=== PATIENT | female | born 1945 | race Caucasian/White ===

== ENCOUNTER → 2016-07-08 | Outpatient (CLI) | payer MEDICARE, OTHER ==
--- NOTE | 2016-07-08 10:38 | REPMRS ---
Patient History The patient states she had a clinical breast exam in 07/2016. Patient is postmenopausal. Family history of breast cancer in maternal aunt at age 50 or over and ovarian cancer in maternal cousin at age 59. Digital Woman Screen Mammo: July 08, 2016 - Exam #: [id number] Bilateral CC and MLO view(s) were taken. Technologist: Louise Tapia, Technologist Prior study comparison: June 21, 2015, digital woman screen mammo performed at [facility]. June 13, 2014, digital woman screen mammo performed at [facility]. June 08, 2013, digital woman screen mammo performed at [facility]. FINDINGS: There are scattered fibroglandular densities. There has been no change in the appearance of the mammogram from the prior studies. There is a mild amount of scattered fibroglandular density which is fairly symmetric. There is no interval development of dominant mass, architectural distortion, or clustered microcalcification suggestive of malignancy. ASSESSMENT: BI-RADS/ACR category 1 mammogram. Negative. Recommendation Routine screening mammogram in 1 year (for women over age 40). This mammogram was interpreted with the aid of an FDA-approved computer-aided dectection system. Electronically Signed By: Eliazar Hopkins MD 07/08/16 1038
== END ==
LOC: M WHC 09:10
PROVIDERS: ATTEND Nurse Practitioner Family
DX: Z01.419 Encounter for gynecological examination (general) (routine) without abnormal findings (principal); Z12.31 Encounter for screening mammogram for malignant neoplasm of breast; Z78.0 Asymptomatic menopausal state; Z12.12 Encounter for screening for malignant neoplasm of rectum
CPT/HCPCS: 82270; G0101; G0202

== ENCOUNTER → 2016-10-27 | Outpatient (CLI) | payer MEDICARE, OTHER ==
[2016-10-27 12:40] LABS: MEAN CORPUSCULAR HGB CONC 33.1 g/dl (32.0-36.5); MEAN CORPUSCULAR VOLUME 93.7 fl (80.0-96.0); RED CELL DISTRIBUTION WIDTH 13.2 % (11.5-14.5); WHITE BLOOD COUNT 7.9 K/mm3 (4.0-10.0)
[2016-10-27 13:14] LABS: ALBUMIN 3.8 GM/DL (3.2-5.2); ALBUMIN/GLOBULIN RATIO 1.23 (1.00-1.93); ALKALINE PHOSPHATASE 93 U/L (45-117); ALT/SGPT 28 U/L (12-78); ANION GAP 7 MEQ/L (8-16); AST/SGOT 8 U/L (15-37); BILIRUBIN,TOTAL 0.6 MG/DL (0.2-1.0); BLOOD UREA NITROGEN 19 MG/DL (7-18); CALCIUM LEVEL 9.4 MG/DL (8.8-10.2); CARBON DIOXIDE LEVEL 30 MEQ/L (21-32); CHLORIDE LEVEL 105 MEQ/L (98-107); CHOLESTEROL LEVEL 207 MG/DL (<200); CREATININE FOR GFR 0.81 MG/DL (0.55-1.02); GLOMERULAR FILTRATION RATE > 60.0 (>39); GLUCOSE, FASTING 84 MG/DL (83-110); SODIUM LEVEL 142 MEQ/L (136-145); TOTAL PROTEIN 6.9 GM/DL (6.4-8.2); TRIGLYCERIDES LEVEL 78 MG/DL (<150)
== END ==
LOC: M WUC 08:56
PROVIDERS: ATTEND Nurse Practitioner Adult Health
DX: Z00.00 Encounter for general adult medical examination without abnormal findings (principal); E55.9 Vitamin D deficiency, unspecified; Z79.899 Other long term (current) drug therapy

== ENCOUNTER → 2017-03-03 | Outpatient (CLI) | payer MEDICARE, OTHER ==
--- NOTE | 2017-03-03 12:33 | REP ---
BILATERAL LOWER EXTREMITY DUPLEX VENOUS ULTRASOUND: Reflux evaluation. HISTORY: Bilateral lower extremity venous insufficiency. Question reflux. Pain in the left leg. FINDINGS: The deep veins are anechoic and fully compressible on two-dimensional scanning in both lower extremities from the groin to the popliteal fossa. Color flow imaging is homogeneous. Spectral Doppler interrogation shows intact respiratory variation in flow and normal manual augmentation of flow. There is no evidence of deep vein thrombosis on either side. REFLUX EVALUATION: On the right, reflux is seen greater than 0.5 seconds in duration in the proximal common femoral vein as well as in the anterior accessory greater saphenous vein. In the greater saphenous vein proximally reflux of 2.5 seconds in duration is observed. No more distal reflux is seen in the right lower extremity. The greater saphenous vein measures 6.5 mm in AP dimension proximally, 2.7 mm at midthigh, and 1.6 mm in AP dimension distally. The lesser saphenous vein measures 3.3 mm in AP dimension. There is a mid thigh collateral veins seen. On the left, a large midthigh collateral vein is seen. Reflux is seen within this. Reflux is seen in the common femoral vein as well. Greater than 0.5 seconds in duration. 2.5 seconds of valvular reflux is seen in the proximal greater saphenous vein at the saphenofemoral junction where the greater saphenous vein measures 6.7 mm in AP dimension. 2.9 seconds duration reflux is observed in the greater saphenous vein at mid thigh where the vein measures 5.1 mm. No more distal reflux is seen. The greater saphenous vein measures 1.8 mm at the knee. The lesser saphenous vein measures 5.3 mm. IMPRESSION: There is reflux in the proximal thigh veins bilaterally as above. No evidence of DVT. Signed by Brian Hopkins MD 03/03/2017 01:09 P
== END ==
LOC: M RAD 09:38
PROVIDERS: ATTEND Surgery Vascular Surgery
DX: M79.605 Pain in left leg (principal)

== ENCOUNTER → 2017-07-29 | Outpatient (CLI) | payer MEDICARE, OTHER | LOC: M RAD 09:14 | DX: Z12.31 Encounter for screening mammogram for malignant neoplasm of breast (principal) | CPT/HCPCS: 77065 ==

== ENCOUNTER → 2017-08-17 | Outpatient (CLI) | payer MEDICARE, OTHER ==
[2017-08-17 14:13] LABS: ANION GAP 4 MEQ/L (8-16); BLOOD UREA NITROGEN 21 MG/DL (7-18); CALCIUM LEVEL 9.2 MG/DL (8.8-10.2); CARBON DIOXIDE LEVEL 30 MEQ/L (21-32); CHLORIDE LEVEL 106 MEQ/L (98-107); GLOMERULAR FILTRATION RATE > 60.0 (>39); GLUCOSE, FASTING 82 MG/DL (70-100); POTASSIUM SERUM 4.1 MEQ/L (3.5-5.1); SODIUM LEVEL 140 MEQ/L (136-145)
== END ==
LOC: M WUC 12:44
DX: C50.919 Malignant neoplasm of unspecified site of unspecified female breast (principal)
CPT/HCPCS: 80048

== ENCOUNTER → 2017-11-16 | Outpatient (CLI) | payer MEDICARE, OTHER ==
[2017-11-16 12:16] LABS: HEMATOCRIT 36.9 % (36.0-47.0); HEMOGLOBIN 12.6 g/dl (12.0-15.5); MEAN CORPUSCULAR HGB CONC 34.1 g/dl (32.0-36.5); MEAN CORPUSCULAR VOLUME 87.9 fl (80.0-96.0); PLATELET COUNT, AUTOMATED 285 10^3/uL (150-450); RED CELL DISTRIBUTION WIDTH 13.3 % (11.5-14.5); WHITE BLOOD COUNT 5.9 10^3/uL (4.0-10.0)
[2017-11-16 12:56] LABS: ALBUMIN 3.3 GM/DL (3.2-5.2); ALBUMIN/GLOBULIN RATIO 1.22 (1.00-1.93); ALKALINE PHOSPHATASE 79 U/L (45-117); ALT/SGPT 38 U/L (12-78); ANION GAP 7 MEQ/L (8-16); AST/SGOT 16 U/L (7-37); BILIRUBIN,TOTAL 0.7 MG/DL (0.2-1.0); BLOOD UREA NITROGEN 18 MG/DL (7-18); CALCIUM LEVEL 8.8 MG/DL (8.8-10.2); CARBON DIOXIDE LEVEL 30 MEQ/L (21-32); CHLORIDE LEVEL 105 MEQ/L (98-107); CHOLESTEROL LEVEL 130 MG/DL (<200); CREATININE FOR GFR 0.72 MG/DL (0.55-1.30); GLOMERULAR FILTRATION RATE > 60.0 (>39); GLUCOSE, FASTING 90 MG/DL (70-100); HDL CHOLESTEROL 57 MG/DL (>40); LDL CHOLESTEROL 56.6 MG/DL (<100); NON-HDL-C 73 MG/DL; POTASSIUM SERUM 3.5 MEQ/L (3.5-5.1); SODIUM LEVEL 142 MEQ/L (136-145); TRIGLYCERIDES LEVEL 82 MG/DL (<150)
[2017-11-16 16:48] LABS: TOTAL 25(OH) VITAMIN D 42.1 NG/ML (30.0-100.0)
== END ==
LOC: M WUC 09:35
DX: Z00.00 Encounter for general adult medical examination without abnormal findings (principal); I87.9 Disorder of vein, unspecified; E78.2 Mixed hyperlipidemia; E55.9 Vitamin D deficiency, unspecified; C50.412 Malignant neoplasm of upper-outer quadrant of left female breast
CPT/HCPCS: 84443

== ENCOUNTER → 2017-11-16 | Outpatient (CLI) | payer MEDICARE, OTHER ==
[2017-11-16 12:15] LABS: BASO % 0.3 % (0.0-1.0); EOS # 0.1 10^3/uL (0.0-0.50); HEMATOCRIT 36.3 % (36.0-47.0); HEMOGLOBIN 12.5 g/dl (12.0-15.5); IMMATURE GRANULOCYTE % 0.7 % (0-3.0); LYMPH # 1.5 10^3/uL (1.5-4.5); MEAN CORPUSCULAR HEMOGLOBIN 30.3 pg (27.0-33.0); MEAN CORPUSCULAR HGB CONC 34.4 g/dl (32.0-36.5); MEAN CORPUSCULAR VOLUME 88.1 fl (80.0-96.0); MONO # 0.2 10^3/uL (0.0-0.8); MONO % 3.1 % (0.0-5.0); NEUTROPHILS % 68.9 % (36.0-66.0); PLATELET COUNT, AUTOMATED 295 10^3/uL (150-450); RED BLOOD COUNT 4.12 10^6/uL (4.00-5.40); RED CELL DISTRIBUTION WIDTH 13.5 % (11.5-14.5); WHITE BLOOD COUNT 5.8 10^3/uL (4.0-10.0)
[2017-11-16 13:03] LABS: ALBUMIN 3.3 GM/DL (3.2-5.2); ALBUMIN/GLOBULIN RATIO 1.27 (1.00-1.93); ALKALINE PHOSPHATASE 77 U/L (45-117); ALT/SGPT 39 U/L (12-78); ANION GAP 7 MEQ/L (8-16); AST/SGOT 15 U/L (7-37); BILIRUBIN,TOTAL 0.7 MG/DL (0.2-1.0); BLOOD UREA NITROGEN 19 MG/DL (7-18); CALCIUM LEVEL 8.6 MG/DL (8.8-10.2); CARBON DIOXIDE LEVEL 30 MEQ/L (21-32); CHLORIDE LEVEL 105 MEQ/L (98-107); CREATININE FOR GFR 0.66 MG/DL (0.55-1.30); GLOMERULAR FILTRATION RATE > 60.0 (>39); GLUCOSE, FASTING 91 MG/DL (70-100); POTASSIUM SERUM 3.5 MEQ/L (3.5-5.1); SODIUM LEVEL 142 MEQ/L (136-145); TOTAL PROTEIN 5.9 GM/DL (6.4-8.2)
== END ==
LOC: M WUC 09:31
DX: C50.412 Malignant neoplasm of upper-outer quadrant of left female breast (principal)

== ENCOUNTER → 2017-12-17 | Outpatient (CLI) | payer MEDICARE, OTHER | LOC: M ONCR 10:04 | DX: D05.02 Lobular carcinoma in situ of left breast (principal) | CPT/HCPCS: G0463 ==

== ENCOUNTER → 2018-02-02 | Outpatient (RCR) | payer MEDICARE, OTHER ==
--- NOTE | 2018-01-14 10:58 | RADONC ---
RADIATION ONCOLOGY SIMULATION NOTE: DATE: 01/13/2018 CHART NUMBER: [id number] Ms. Stover was taken to the CT scan for CT simulation of her left breast and axillary lymph node drainage site. CT scan was accomplished without difficulty or discomfort. Radiation treatment planning is underway and radiation treatments will begin subsequently. An immobilization device was created and will be used throughout the course of treatment. I was physically present throughout the course of CT simulation.
--- NOTE | 2018-01-25 10:08 | RADONC ---
RADIATION ONCOLOGY PROGRESS NOTE DATE: 01/24/2018 CHART #: [id number] Ms. Stover is presently at a dose of 540 cGy to her left breast and is tolerating treatments quite well at this point with no complaints related to her radiation therapy. She is having no breast or bone pain. REVIEW OF SYSTEMS: The patient's review of systems is noncontributory. Denies nausea, vomiting, fevers, chills, night sweats, diplopia, headaches, anxiety or depression, anorexia, weight loss, visual disturbances, chest pain, urinary or bowel difficulties, bone pain, or neurological problems. PHYSICAL EXAMINATION: The patient's skin is in good condition with no evidence of radiation change present. There is no moist or dry desquamation. The remainder of her physical exam remains unchanged. Ms. Stover is tolerating treatments quite well and radiation will continue as scheduled.
== END ==
LOC: M ONCR 01-13 13:29
PROVIDERS: ATTEND Radiology Radiation Oncology
DX: C50.412 Malignant neoplasm of upper-outer quadrant of left female breast (principal)

== ENCOUNTER 2018-02-03 10:40 | Outpatient (RCR) | payer MEDICARE, OTHER | END 2018-03-04 | LOC: M ONCR 02-04 10:47 | DX: C50.412 Malignant neoplasm of upper-outer quadrant of left female breast (principal) | CPT/HCPCS: 77336 ==

== ENCOUNTER 2018-03-09 17:27 | Outpatient (CLI) | payer MEDICARE, OTHER ==
[2018-03-09] MEDS ORDERED: ISOVUE-370 76% 100ML VIAL (Q9967) As Ordered (17:36)
[2018-03-10] MEDS ORDERED: EMLA CREAM 5GM (LIDOCAINE/PRILOCAINE) As Ordered (13:19)
== END 2018-03-10 ==
LOC: M RAD 17:27
DX: R06.02 Shortness of breath (principal); R79.89 Other specified abnormal findings of blood chemistry; J90 Pleural effusion, not elsewhere classified; I31.3 Pericardial effusion (noninflammatory); K44.9 Diaphragmatic hernia without obstruction or gangrene; J98.11 Atelectasis
CPT/HCPCS: 71275

== ENCOUNTER 2018-03-17 10:43 | Outpatient (RCR) | payer MEDICARE, OTHER ==
--- NOTE | 2018-03-10 07:49 | RADONC ---
RADIATION ONCOLOGY SIMULATION NOTE DATE: 03/07/2018 CHART NUMBER: Ms. Stover was taken to the linear accelerator today for clinical setup of her left breast electron beam boost field. Setup was accomplished without difficulty or discomfort. Radiation treatment planning is underway and radiation treatments will begin subsequently. An immobilization device was created and will be used throughout the course of treatment. It was created without difficulty or discomfort. I was physically present throughout the course of CT simulation.
--- NOTE | 2018-03-10 07:50 | RADONC ---
RADIATION ONCOLOGY PROGRESS NOTE DATE: 03/07/2018 CHART #: [id number] Ms. Stover is presently at a dose of 4500 cGy to her left breast and is tolerating treatments quite well at this point with no significant complaints related to her radiation therapy. She is having no significant breast or bone pain. REVIEW OF SYSTEMS: The patient's review of systems is noncontributory. Denies nausea, vomiting, fevers, chills, night sweats, diplopia, headaches, anxiety or depression, anorexia, weight loss, visual disturbances, chest pain, urinary or bowel difficulties, bone pain, or neurological problems. PHYSICAL EXAMINATION: The patient's skin overall is in good condition with no evidence of moist or dry desquamation. She does have brisk erythema and tanning present, especially in the inframammary region. The remainder of her physical exam remains unchanged. Ms. Stover is tolerating treatments quite well and radiation will continue as scheduled.
--- NOTE | 2018-03-15 11:43 | RADONC ---
RADIATION ONCOLOGY PROGRESS NOTE DATE: 03/14/2018 CHART NUMBER: [id number] PROGRESS NOTE: Ms. Stover is presently at a dose of 5460 cGy to her left breast primary site boost and is tolerating treatments quite well at this point with no complaints related to her radiation therapy. She is having no significant breast or bone pain. REVIEW OF SYSTEMS: The patient's review of systems is positive for continued cough but is otherwise noncontributory. Denies nausea, vomiting, fevers, chills, night sweats, diplopia, headaches, anxiety or depression, anorexia, weight loss, visual disturbances, chest pain, urinary or bowel difficulties, bone pain, or neurological problems. She denies standard review of systems. PHYSICAL EXAMINATION: The patient's skin overall is in generally good condition. The remainder of physical exam remains unchanged. The patient's cough is being worked up by her other physicians. In the meantime, radiation is continuing as scheduled.
--- NOTE | 2018-03-18 14:59 | RADONC ---
RADIATION ONCOLOGY TREATMENT SUMMARY DATE: 03/17/2018 CHART NUMBER: [id number] DIAGNOSIS Left breast cancer. STAGE: Stage I B, [id number], grade 3, ER positive, [place] positive, HER2/danika positive (equivocal). ECOG PERFORMANCE STATUS: 0. TREATMENT SUMMARY: Ms. 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 We treated the patient to the left breast for a total dose of 4860 cGy delivered in 27 fractions of 180 cGy each over 48 elapsed days from 01/20/2018 through 03/09/2018. The patient's left breast was treated on the linear accelerator utilizing a 6 MV photon beam via IMRT / IGRT. We also treated the patient to the axilla and cervical lymph node drainage sites included in the IMRT field. Following completion of 4860 cGy, the entire breast and lymph node drainage sites, the primary site was boosted for an additional 1200 cGy delivered in six fractions of 200 cGy each from 03/10/2018 through 03/17/2018. The primary site boost was treated on a linear accelerator utilizing a 16 MEV electron beam prescribed to the 90% isodose line via non phos technique. This brought the primary site to a total dose of 6060 cGy delivered in 33 fractions over 56 elapsed days from 01/20/2018 through 03/17/2018. The patient overall tolerated her treatments quite well with no difficulties related to her radiation therapy. She did have pneumonia and was treated with antibiotics. This did cause a short break in her treatment. She was able to resume treatments, however, without difficulty. I have scheduled the patient to see me again in 1 month for further followup. She will also continue to be followed by her other physicians as well. cc: MD Felisa Conley MD Bonnie Servage, RN
== END 2018-04-04 ==
LOC: M ONCR 10:43
PROVIDERS: ATTEND Radiology Radiation Oncology
DX: C50.412 Malignant neoplasm of upper-outer quadrant of left female breast (principal)

== ENCOUNTER → 2018-04-20 | Outpatient (CLI) | payer MEDICARE, OTHER ==
--- NOTE | 2018-04-21 11:15 | RADONC ---
RADIATION ONCOLOGY FOLLOWUP NOTE DATE: 04/20/2018 CHART #: [id number] DIAGNOSIS: Left breast cancer. STAGE: I B, [id number], grade 3, ER positive, SC positive, HER2/danika positive (equivocal). ECOG PERFORMANCE STATUS: 0. FOLLOWUP NOTE: Ms. Stover is a very pleasant 72-year-old white female with the diagnosis of a stage I B, [id number], poorly differentiated invasive lobular carcinoma of the left breast who is presenting to us today for routine followup visit 1 month post completion of external beam radiation therapy. The patient presents today reporting that she is doing quite well with no complaints at this time related to her radiation therapy disease. She has no breast or bone pain. REVIEW OF SYSTEMS: The patient's review of systems is noncontributory. Denies nausea, vomiting, fevers, chills, night sweats, diplopia, headaches, anxiety or depression, anorexia, weight loss, visual disturbances, chest pain, urinary or bowel difficulties, bone pain, or neurological problems. PHYSICAL EXAMINATION: The patient is a well-developed, well-nourished, 72-year-old female in no acute distress. HEENT exam is normocephalic, atraumatic. Extraocular movements are intact. There is no palpable cervical, supraclavicular, infraclavicular, axillary, or inguinal lymphadenopathy present. Lungs are clear to auscultation and percussion. Heart has a regular rate and rhythm. Abdomen is benign with no hepatosplenomegaly, masses, or tenderness. Breast examination reveals no masses or discharge bilaterally. Skeletal examination reveals no tenderness to pressure or percussion of the bony skeleton. Extremities reveal no clubbing, cyanosis, or edema. Neurologic exam is grossly intact, as is the remainder of the physical examination. ASSESSMENT: The patient is clinically PEGGY at this time and will be seen by us again in 6 months for further followup. She will also continue be followed by her other physicians as well. cc: MD Felisa Conley MD Bonnie Servage, RN
== END ==
LOC: M ONCR 10:55
PROVIDERS: ATTEND Radiology Radiation Oncology
DX: C50.412 Malignant neoplasm of upper-outer quadrant of left female breast (principal)

== ENCOUNTER → 2018-06-13 | Outpatient (REF) | payer MEDICARE, OTHER ==
[2018-06-13 10:53] LABS: HEMATOCRIT 38.9 % (36.0-47.0); HEMOGLOBIN 12.9 g/dl (12.0-15.5); MEAN CORPUSCULAR HEMOGLOBIN 29.5 pg (27.0-33.0); MEAN CORPUSCULAR HGB CONC 33.2 g/dl (32.0-36.5); PLATELET COUNT, AUTOMATED 213 10^3/uL (150-450); RED BLOOD COUNT 4.37 10^6/uL (4.00-5.40); WHITE BLOOD COUNT 4.7 10^3/uL (4.0-10.0)
[2018-06-13 11:19] LABS: BLOOD UREA NITROGEN 20 MG/DL (7-18); CALCIUM LEVEL 8.9 MG/DL (8.8-10.2); CARBON DIOXIDE LEVEL 31 MEQ/L (21-32); CHLORIDE LEVEL 104 MEQ/L (98-107); CREATININE FOR GFR 0.72 MG/DL (0.55-1.30); GLOMERULAR FILTRATION RATE > 60.0 (>39); GLUCOSE, FASTING 93 MG/DL (70-100); SODIUM LEVEL 142 MEQ/L (136-145)
== END ==
LOC: M SFHCPLAZ 08:40
PROVIDERS: ATTEND Internal Medicine
DX: Z01.818 Encounter for other preprocedural examination (principal); I87.322 Chronic venous hypertension (idiopathic) with inflammation of left lower extremity; Z85.3 Personal history of malignant neoplasm of breast
CPT/HCPCS: 36415; 80048; 85027; G0463

== ENCOUNTER → 2018-07-12 | Outpatient (REF) | payer MEDICARE, OTHER ==
[2018-07-12 16:16] LABS: BLOOD UREA NITROGEN 21 MG/DL (7-18); CALCIUM LEVEL 9.2 MG/DL (8.8-10.2); CARBON DIOXIDE LEVEL 26 MEQ/L (21-32); CHLORIDE LEVEL 109 MEQ/L (98-107); CREATININE FOR GFR 0.75 MG/DL (0.55-1.30); GLOMERULAR FILTRATION RATE > 60.0 (>39); GLUCOSE, FASTING 69 MG/DL (70-100); POTASSIUM SERUM 3.9 MEQ/L (3.5-5.1); SODIUM LEVEL 142 MEQ/L (136-145)
== END ==
LOC: M SFHCPLAZ 14:27
PROVIDERS: ATTEND Nurse Practitioner Adult Health
DX: I87.9 Disorder of vein, unspecified (principal)
CPT/HCPCS: 36415; 80048; G0463

== ENCOUNTER → 2018-07-18 | Outpatient (CLI) | payer MEDICARE, OTHER ==
--- NOTE | 2018-07-19 11:12 | DEXA ---
AP SPINE L1 - L4 0.854 -2.8 -1.1 LT FEMUR TOTAL 0.820 -1.5 0.1 LT NECK 0.711 -2.3 -0.6 RT FEMUR TOTAL 0.847 -1.3 0.3 RT NECK 0.735 -2.2 -0.4 TOTAL BODY TOTAL OTHER COMMENTS: Normal bone densitometry of the spine. There is low bone density of the hips. The density of the spine has increased 4.1% since the initial exam on 01/18/2002. The spine density has decreased 1.2% since the most recent exam on 06/13/2014. The density of the left hip has decreased 1.6% since the initial exam on 01/18/2002. The density of the left hip has decreased 2.6% since the most recent exam on 06/13/2014. The density of the right hip has decreased 2.4% since the initial exam on 01/18/2002. The density of the right hip has decreased 4.0% since the most recent exam on 06/13/2014. FOLLOW-UP: Recommendation for the next bone density exam: 2 years. BRANDON
== END ==
LOC: M WHC 11:09
PROVIDERS: ATTEND Nurse Practitioner Family
DX: C50.412 Malignant neoplasm of upper-outer quadrant of left female breast (principal); M85.9 Disorder of bone density and structure, unspecified; Z78.0 Asymptomatic menopausal state; Z12.4 Encounter for screening for malignant neoplasm of cervix; Z12.12 Encounter for screening for malignant neoplasm of rectum
CPT/HCPCS: 77080; 82270; G0101; G0123

== ENCOUNTER → 2018-07-18 | Outpatient (REF) | payer MEDICARE, OTHER | LOC: M SFHCWAGY 11:59 | PROVIDERS: ATTEND Nurse Practitioner Family | DX: Z12.4 Encounter for screening for malignant neoplasm of cervix (principal) ==

== ENCOUNTER → 2018-09-29 | Outpatient (CLI) | payer MEDICARE, OTHER ==
--- NOTE | 2018-09-29 17:53 | REP ---
Clinical: Superficial thrombophlebitis with pain . Technique: Hernandez scale and color Doppler evaluation using linear high frequency transducer. Findings: Ultrasound examination of the left lower extremity deep venous structures from the common femoral vein to the popliteal vein demonstrates normal compressibility flow and wave patterns in response to respiration and augmentation. There is no evidence for deep venous thrombosis. Greater saphenous vein is occluded and consistent with history of prior ablation. Impression: No evidence for deep venous thrombosis. Electronically Signed by Seven Dawkins MD 09/29/2018 05:45 P
== END ==
LOC: M RAD 16:43
PROVIDERS: ATTEND Family Medicine
DX: I80.9 Phlebitis and thrombophlebitis of unspecified site (principal); R60.0 Localized edema
CPT/HCPCS: 93971; G0463

== ENCOUNTER → 2018-10-05 | Outpatient (CLI) | payer MEDICARE, OTHER ==
--- NOTE | 2018-10-07 09:25 | RADONC ---
RADIATION ONCOLOGY FOLLOWUP NOTE DATE: 10/05/2018 CHART NUMBER: [id number] DIAGNOSIS: Left breast cancer. STAGE: Stage I B, [id number], grade 3, ER positive, [place] positive, HER2/danika positive (equivocal). ECOG PERFORMANCE STATUS: 0. FOLLOWUP NOTE: Mrs. Stover, a 72-year-old woman, with a diagnosis of a stage I B, [id number], poorly differentiated invasive lobular carcinoma involving the left breast presents today for followup visit after having completed adjuvant radiotherapy on 03/17/2018. She tolerated her radiotherapy reasonably well and returns today for followup visit with no complaints referable to her disease or to her treatments. REVIEW OF SYSTEMS: She specifically denies any nausea, vomiting, coughing, sputum production or hemoptysis. She also denies pain in the chest / breast area, anxiety, depression, anorexia, weight loss, visual disturbances, urinary or bowel problems, bone pain or neurologic deficits. PHYSICAL EXAMINATION: Reveals a well-developed, well-nourished 72-year-old female in no acute distress. HEENT: Normocephalic. EOMs intact. PERRLA. Fundi benign. Lungs: Clear to auscultation and percussion. Heart: Regular without murmurs. Abdomen: Without evidence of hepatomegaly, masses, deep abdominal tenderness. Extremities: Without cyanosis, clubbing or edema. Neurologic: Examination grossly physiologic and nonfocal. ASSESSMENT The patient is clinically PEGGY at this time, and we would like to see her again in approximately 6 months. She was encouraged to be followed by her routine physicians as per their instructions. cc: MD Felisa Conley MD Bonnie Servage, RN
== END ==
LOC: M ONCR 11:01
PROVIDERS: ATTEND Radiology Radiation Oncology
DX: Z85.3 Personal history of malignant neoplasm of breast (principal); Z92.3 Personal history of irradiation

== ENCOUNTER → 2018-10-12 | Outpatient (REF) | payer MEDICARE, OTHER ==
[2018-10-12 13:48] LABS: ALBUMIN 3.6 GM/DL (3.2-5.2); ALT/SGPT 35 U/L (12-78); BILIRUBIN,TOTAL 0.4 MG/DL (0.2-1.0); BLOOD UREA NITROGEN 23 MG/DL (7-18); CALCIUM LEVEL 9.7 MG/DL (8.8-10.2); CARBON DIOXIDE LEVEL 31 MEQ/L (21-32); CHLORIDE LEVEL 105 MEQ/L (98-107); CREATININE FOR GFR 0.83 MG/DL (0.55-1.30); GLOMERULAR FILTRATION RATE > 60.0 (>39); GLUCOSE, FASTING 69 MG/DL (70-100); POTASSIUM SERUM 3.7 MEQ/L (3.5-5.1); SODIUM LEVEL 143 MEQ/L (136-145); TOTAL PROTEIN 6.7 GM/DL (6.4-8.2)
== END ==
LOC: M SFHCPLAZ 11:20
PROVIDERS: ATTEND Nurse Practitioner Adult Health
DX: I87.9 Disorder of vein, unspecified (principal)

== ENCOUNTER → 2018-11-14 | Outpatient (REF) | payer MEDICARE, OTHER ==
[2018-11-14 13:33] LABS: BLOOD UREA NITROGEN 18 MG/DL (7-18); CALCIUM LEVEL 9.6 MG/DL (8.8-10.2); CARBON DIOXIDE LEVEL 30 MEQ/L (21-32); CHLORIDE LEVEL 105 MEQ/L (98-107); CREATININE FOR GFR 0.77 MG/DL (0.55-1.30); GLOMERULAR FILTRATION RATE > 60.0 (>39); GLUCOSE, FASTING 82 MG/DL (70-100); POTASSIUM SERUM 3.2 MEQ/L (3.5-5.1); SODIUM LEVEL 142 MEQ/L (136-145)
== END ==
LOC: M SFHCPLAZ 11:21
PROVIDERS: ATTEND Nurse Practitioner Adult Health
DX: I87.9 Disorder of vein, unspecified (principal)
CPT/HCPCS: 36415; 80048; G0463

== ENCOUNTER → 2019-02-07 | Outpatient (REF) | payer MEDICARE, OTHER ==
[2019-02-07 16:35] LABS: ALBUMIN 3.7 GM/DL (3.2-5.2); ALT/SGPT 35 U/L (12-78); BILIRUBIN,TOTAL 0.5 MG/DL (0.2-1.0); BLOOD UREA NITROGEN 16 MG/DL (7-18); CALCIUM LEVEL 9.2 MG/DL (8.8-10.2); CARBON DIOXIDE LEVEL 32 MEQ/L (21-32); CHLORIDE LEVEL 104 MEQ/L (98-107); CHOLESTEROL LEVEL 142 MG/DL (<200); CHOLESTEROL RISK RATIO 2.088 (<5); CREATININE FOR GFR 0.79 MG/DL (0.55-1.30); GLOMERULAR FILTRATION RATE > 60.0 (>39); GLUCOSE, FASTING 75 MG/DL (70-100); HDL CHOLESTEROL 68 MG/DL (>40); LDL CHOLESTEROL 57 MG/DL (<100); NON-HDL-C 74 MG/DL; SODIUM LEVEL 144 MEQ/L (136-145); TOTAL PROTEIN 6.6 GM/DL (6.4-8.2); TRIGLYCERIDES LEVEL 87 MG/DL (<150)
[2019-02-07 16:43] LABS: TOTAL 25(OH) VITAMIN D 62.2 NG/ML (30.0-100.0)
== END ==
LOC: M SFHCPLAZ 14:23
PROVIDERS: ATTEND Nurse Practitioner Adult Health
DX: E55.9 Vitamin D deficiency, unspecified (principal); I87.9 Disorder of vein, unspecified; E78.2 Mixed hyperlipidemia

== ENCOUNTER → 2019-03-15 | Outpatient (CLI) | payer MEDICARE, OTHER ==
--- NOTE | 2019-03-15 14:17 | RADONC ---
RADIATION ONCOLOGY FOLLOWUP NOTE DATE: 03/15/2019 CHART NUMBER: [id number] DIAGNOSIS: Left breast cancer. STAGE: IB, [id number], grade 3, ER positive, [place] positive, HER2/danika positive (equivocal). ECOG PERFORMANCE STATUS: 0. FOLLOWUP NOTE: Ms. Stover is a very pleasant 73-year-old white female with the diagnosis of a stage IB, [id number], poorly differentiated invasive lobular carcinoma of the left breast who is presenting to me today for routine followup visit 1 year post completion of external beam radiation therapy. The patient presents today reporting that she is doing quite well with no complaints at this time related to her radiation therapy or disease. She has no breast or bone pain. The patient's review of systems is noncontributory. She denies nausea, vomiting, fevers, chills, night sweats, diplopia, headaches, anxiety or depression, anorexia, weight loss, visual disturbances, chest pain, urinary or bowel difficulties, bone pain, or neurological problems. PHYSICAL EXAMINATION: The patient is a well-developed, well-nourished, female in no acute distress. HEENT exam is normocephalic, atraumatic. Extraocular movements are intact. There is no palpable cervical, supraclavicular, infraclavicular, axillary, or inguinal lymphadenopathy present. Lungs are clear to auscultation and percussion. Heart has a regular rate and rhythm. Abdomen is benign with no hepatosplenomegaly, masses, or tenderness. Breast examination reveals no masses or discharge bilaterally. Skeletal examination reveals no tenderness to pressure or percussion of the bony skeleton. Extremities reveal no clubbing, cyanosis, or edema. Neurologic exam is grossly intact, as is the remainder of the physical examination. ASSESSMENT: The patient is clinically PEGGY at this time. She is being followed and managed closely by her other physicians and therefore is being discharged from my followup except on an as needed basis. The patient has my cell phone number and office number and I would be glad to see her at anytime if I could be of any assistance or provide her with any information. cc: MD Felisa Conley MD Bonnie Servage, RN
== END ==
LOC: M ONCR 10:42
PROVIDERS: ATTEND Radiology Radiation Oncology
DX: Z85.3 Personal history of malignant neoplasm of breast (principal)

== ENCOUNTER → 2020-02-13 | Outpatient (REF) | payer MEDICARE, OTHER ==
[2020-02-13 18:23] LABS: ALBUMIN 3.7 GM/DL (3.2-5.2); ALT/SGPT 30 U/L (12-78); BILIRUBIN,TOTAL 0.4 MG/DL (0.2-1.0); BLOOD UREA NITROGEN 20 MG/DL (7-18); CALCIUM LEVEL 9.6 MG/DL (8.8-10.2); CARBON DIOXIDE LEVEL 32 MEQ/L (21-32); CHLORIDE LEVEL 105 MEQ/L (98-107); CREATININE FOR GFR 0.82 MG/DL (0.55-1.30); GLOMERULAR FILTRATION RATE > 60.0 (>39); GLUCOSE, FASTING 83 MG/DL (70-100); POTASSIUM SERUM 3.7 MEQ/L (3.5-5.1); SODIUM LEVEL 143 MEQ/L (136-145); TOTAL PROTEIN 6.7 GM/DL (6.4-8.2)
== END ==
LOC: M SFHCPLAZ 14:07
PROVIDERS: ATTEND Nurse Practitioner Adult Health
DX: I87.9 Disorder of vein, unspecified (principal)
CPT/HCPCS: 36415; 80053; G0463

== ENCOUNTER → 2020-06-12 | Outpatient (CLI) | payer MEDICARE, OTHER ==
[2020-06-12 07:45] LABS: ALBUMIN 3.7 GM/DL (3.2-5.2); ALT/SGPT 28 U/L (12-78); BILIRUBIN,TOTAL 0.5 MG/DL (0.2-1.0); BLOOD UREA NITROGEN 16 MG/DL (7-18); CALCIUM LEVEL 9.4 MG/DL (8.8-10.2); CARBON DIOXIDE LEVEL 34 MEQ/L (21-32); CHLORIDE LEVEL 105 MEQ/L (98-107); CHOLESTEROL LEVEL 145 MG/DL (<200); CHOLESTEROL RISK RATIO 1.986 (<5); CREATININE FOR GFR 0.87 MG/DL (0.55-1.30); GLOMERULAR FILTRATION RATE > 60.0 (>39); GLUCOSE, FASTING 91 MG/DL (70-100); HDL CHOLESTEROL 73 MG/DL (>40); LDL CHOLESTEROL 61 MG/DL (<100); NON-HDL-C 72 MG/DL; POTASSIUM SERUM 3.1 MEQ/L (3.5-5.1); SODIUM LEVEL 143 MEQ/L (136-145); TOTAL PROTEIN 6.6 GM/DL (6.4-8.2); TRIGLYCERIDES LEVEL 56 MG/DL (<150)
[2020-06-12 09:27] LABS: TOTAL 25(OH) VITAMIN D 74.2 NG/ML (30.0-100.0)
== END ==
LOC: M LAB 06:31
PROVIDERS: ATTEND Nurse Practitioner Adult Health
DX: Z13.29 Encounter for screening for other suspected endocrine disorder (principal); E55.9 Vitamin D deficiency, unspecified; I87.9 Disorder of vein, unspecified; E78.2 Mixed hyperlipidemia

== ENCOUNTER → 2020-08-20 | Outpatient (CLI) | payer MEDICARE, OTHER ==
--- NOTE | 2020-08-20 12:11 | DEXAMM ---
INDICATION: C50.412 - BREAST CA. COMPARISON: 07/18/2018 as well as other prior exams. TECHNIQUE: Bone density was measured using dual-energy x-ray absorptiometry (DEXA). FINDINGS: AP SPINE L1-L4 BMD 0.860 g/cm2 Young Adult T-Score -2.7 Age Matched Z-Score -1.0. LT FEMUR, TOTAL BMD 0.807 g/cm2 Young Adult T-Score -1.6 Age Matched Z-Score 0.1. LT NECK BMD 0.687 g/cm2 Young Adult T-Score -2.5 Age Matched Z-Score -0.7. RT FEMUR, TOTAL BMD 0.856 g/cm2 Young Adult T-Score -1.2 Age Matched Z-Score 0.5. RT NECK BMD 0.734 g/cm2 Young Adult T-Score -2.2 Age Matched Z-Score -0.3. IMPRESSION: There is osteoporosis of the spine. There is low bone density of the left hip. There is low bone density of the right hip. The density of the spine has increased 4.9% since the initial exam on 01/18/2002. The density of the spine increased 0.7% since most recent exam on 07/18/2018. The density of the left hip has decreased 3.1% since initial exam on 01/18/2002. The density of the left hip has decreased 1.6% since most recent exam on 07/18/2018. The density of the right hip has decreased 1.4% since the initial exam on 01/18/2002. The density of the right hip has increased 1.1% since the most recent exam on 07/18/2018. FOLLOW-UP: Recommendation for the next bone density exam: 2 years. <Electronically signed by Taj Hernandez > 08/20/20 4420
== END ==
LOC: M WHC 11:02
PROVIDERS: ATTEND Internal Medicine Hematology & Oncology
DX: Z01.419 Encounter for gynecological examination (general) (routine) without abnormal findings (principal); C50.412 Malignant neoplasm of upper-outer quadrant of left female breast; Z78.0 Asymptomatic menopausal state
CPT/HCPCS: 77080; 87624; G0101; G0123

== ENCOUNTER → 2020-08-20 | Outpatient (REF) | payer MEDICARE, OTHER | LOC: M SFHCWAGY 18:55 | PROVIDERS: ATTEND Nurse Practitioner Women's Health | DX: Z12.4 Encounter for screening for malignant neoplasm of cervix (principal); N95.2 Postmenopausal atrophic vaginitis ==

== ENCOUNTER → 2020-09-19 | Outpatient (REF) | payer MEDICARE, OTHER ==
[2020-09-19 17:33] LABS: BLOOD UREA NITROGEN 18 MG/DL (7-18); CALCIUM LEVEL 9.3 MG/DL (8.8-10.2); CARBON DIOXIDE LEVEL 30 MEQ/L (21-32); CHLORIDE LEVEL 106 MEQ/L (98-107); GLOMERULAR FILTRATION RATE > 60.0 (>39); GLUCOSE, FASTING 87 MG/DL (70-100); POTASSIUM SERUM 3.8 MEQ/L (3.5-5.1); SODIUM LEVEL 140 MEQ/L (136-145)
== END ==
LOC: M SFHCPLAZ 15:17
PROVIDERS: ATTEND Nurse Practitioner Adult Health
DX: I87.9 Disorder of vein, unspecified (principal)
CPT/HCPCS: 36415; 80048; G0463

== ENCOUNTER → 2021-06-17 | Outpatient (CLI) | payer MEDICARE, OTHER ==
[2021-06-17 13:25] LABS: HEMOGLOBIN A1c 5.7 %
[2021-06-17 13:30] LABS: ALBUMIN 3.6 GM/DL (3.2-5.2); ALT/SGPT 29 U/L (12-78); BILIRUBIN,TOTAL 0.5 MG/DL (0.2-1.0); BLOOD UREA NITROGEN 24 MG/DL (7-18); CALCIUM LEVEL 9.6 MG/DL (8.8-10.2); CARBON DIOXIDE LEVEL 32 MEQ/L (21-32); CHLORIDE LEVEL 108 MEQ/L (98-107); CHOLESTEROL LEVEL 155 MG/DL (<200); CHOLESTEROL RISK RATIO 2.123 (<5); CREATININE FOR GFR 0.86 MG/DL (0.55-1.30); GLOMERULAR FILTRATION RATE > 60.0 (>39); GLUCOSE, FASTING 96 MG/DL (70-100); HDL CHOLESTEROL 73 MG/DL (>40); LDL CHOLESTEROL 69 MG/DL (<100); NON-HDL-C 82 MG/DL; POTASSIUM SERUM 3.7 MEQ/L (3.5-5.1); SODIUM LEVEL 143 MEQ/L (136-145); TOTAL 25(OH) VITAMIN D 61.9 NG/ML (30.0-100.0); TOTAL PROTEIN 6.2 GM/DL (6.4-8.2); TRIGLYCERIDES LEVEL 64 MG/DL (<150)
== END ==
LOC: M WUC 09:26
PROVIDERS: ATTEND Nurse Practitioner Adult Health
DX: I87.9 Disorder of vein, unspecified (principal); E78.2 Mixed hyperlipidemia; Z13.29 Encounter for screening for other suspected endocrine disorder; E55.9 Vitamin D deficiency, unspecified; Z00.00 Encounter for general adult medical examination without abnormal findings; Z13.1 Encounter for screening for diabetes mellitus

== ENCOUNTER → 2021-11-14 | Outpatient (CLI) | payer MEDICARE, OTHER | LOC: M WUC 11:19 | PROVIDERS: ATTEND Nurse Practitioner Adult Health | DX: R06.02 Shortness of breath (principal); Z98.890 Other specified postprocedural states ==

== ENCOUNTER → 2022-04-13 | Outpatient (CLI) | payer MEDICARE, OTHER ==
[2022-04-13 14:45] LABS: BASO % 0.8 % (0.0-1.0); EOS # 0.2 10^3/uL (0.0-0.5); EOS % 2.9 % (0.0-3.0); HEMATOCRIT 43.3 % (36.0-47.0); HEMOGLOBIN 14.2 g/dl (12.0-15.5); LYMPH # 1.4 10^3/uL (1.5-5.0); LYMPH % 26.1 % (24.0-44.0); MEAN CORPUSCULAR HEMOGLOBIN 29.7 pg (27.0-33.0); MEAN CORPUSCULAR HGB CONC 32.8 g/dl (32.0-36.5); MEAN CORPUSCULAR VOLUME 90.6 fl (80.0-96.0); MONO # 0.4 10^3/uL (0.0-0.8); MONO % 8.5 % (2.0-8.0); NEUTROPHILS # 3.2 10^3/uL (1.5-8.5); NEUTROPHILS % 61.5 % (36.0-66.0); PLATELET COUNT, AUTOMATED 232 10^3/uL (150-450); RED BLOOD COUNT 4.78 10^6/uL (4.00-5.40); WHITE BLOOD COUNT 5.2 10^3/uL (4.0-10.0)
[2022-04-13 15:05] LABS: PROTHROMBIN TIME 13.4 SECONDS (12.5-14.5)
[2022-04-13 15:32] LABS: MAGNESIUM LEVEL 1.9 MG/DL (1.8-2.4)
[2022-04-13 15:33] LABS: FREE T4 1.08 NG/DL (0.89-1.76); THYROID STIMULATING HORMONE 2.687 uIU/ML (0.55-4.78)
[2022-04-13 15:59] LABS: ALBUMIN 3.7 G/DL (3.2-5.2); ALKALINE PHOSPHATASE 108 U/L (46-116); ALT/SGPT 31 U/L (7.0-40); AST/SGOT 22 U/L (<34); BILIRUBIN,TOTAL 0.5 MG/DL (0.3-1.2); BLOOD UREA NITROGEN 19 MG/DL (9-23); CALCIUM LEVEL 9.9 MG/DL (8.3-10.6); CARBON DIOXIDE LEVEL 29 MMOL/L (20-31); CHLORIDE LEVEL 102 MMOL/L (98-107); CREATININE FOR GFR 0.76 MG/DL (0.55-1.30); GLOMERULAR FILTRATION RATE > 60.0 (>39); GLUCOSE, FASTING 67 MG/DL (74-106); POTASSIUM SERUM 3.7 MMOL/L (3.5-5.1); SODIUM LEVEL 142 MMOL/L (136-145); TOTAL PROTEIN 6.1 G/DL (5.7-8.2)
== END ==
LOC: M PLALAB 11:30
PROVIDERS: ATTEND Family Medicine
DX: Z01.818 Encounter for other preprocedural examination (principal); E78.2 Mixed hyperlipidemia; R73.01 Impaired fasting glucose

== ENCOUNTER → 2022-04-19 | Outpatient (CLI) | payer MEDICARE, OTHER | LOC: M LABSMTC 12:04 | PROVIDERS: ATTEND Surgery | DX: Z01.812 Encounter for preprocedural laboratory examination (principal); Z11.52 Encounter for screening for COVID-19 ==

== ENCOUNTER → 2022-05-22 | Outpatient (REF) | payer MEDICARE, OTHER | LOC: M PLALAB 16:15 | PROVIDERS: ATTEND Nurse Practitioner Family | DX: Z12.4 Encounter for screening for malignant neoplasm of cervix (principal) | CPT/HCPCS: 87624; G0123 ==

== ENCOUNTER → 2022-06-05 | Outpatient (CLI) | payer MEDICARE, OTHER ==
[2022-06-05 12:42] LABS: HEMOGLOBIN A1c 5.6 % (4.0-6.0)
[2022-06-05 12:55] LABS: ALBUMIN 3.6 G/DL (3.2-5.2); ALKALINE PHOSPHATASE 104 U/L (46-116); ALT/SGPT 28 U/L (7.0-40); AST/SGOT 18 U/L (<34); BILIRUBIN,TOTAL 0.7 MG/DL (0.3-1.2); BLOOD UREA NITROGEN 20 MG/DL (9-23); CALCIUM LEVEL 9.6 MG/DL (8.3-10.6); CARBON DIOXIDE LEVEL 31 MMOL/L (20-31); CHLORIDE LEVEL 102 MMOL/L (98-107); CHOLESTEROL LEVEL 134 MG/DL (<200); CREATININE FOR GFR 0.77 MG/DL (0.55-1.30); GLOMERULAR FILTRATION RATE > 60.0 (>39); GLUCOSE, FASTING 98 MG/DL (74-106); HDL CHOLESTEROL 63.6 MG/DL (>40); LDL CHOLESTEROL 58.4 MG/DL (<100); NON-HDL-C 70 MG/DL; POTASSIUM SERUM 3.7 MMOL/L (3.5-5.1); SODIUM LEVEL 139 MMOL/L (136-145); THYROID STIMULATING HORMONE 3.112 uIU/ML (0.55-4.78); TOTAL 25(OH) VITAMIN D 68.8 NG/ML (20.0-100.0); TOTAL PROTEIN 6.1 G/DL (5.7-8.2); TRIGLYCERIDES LEVEL 60 MG/DL (<150)
== END ==
LOC: M WUC 09:35
PROVIDERS: ATTEND Nurse Practitioner Adult Health
DX: I87.9 Disorder of vein, unspecified (principal); E78.2 Mixed hyperlipidemia; E55.9 Vitamin D deficiency, unspecified; E13.10 Other specified diabetes mellitus with ketoacidosis without coma; Z13.29 Encounter for screening for other suspected endocrine disorder

== ENCOUNTER → 2022-07-16 | Outpatient (CLI) | payer MEDICARE, OTHER ==
[2022-07-16 17:27] LABS: BASO # 0.1 10^3/uL (0.0-0.2); BASO % 0.9 % (0.0-1.0); HEMATOCRIT 42.1 % (36.0-47.0); HEMOGLOBIN 14.3 g/dl (12.0-15.5); LYMPH # 1.3 10^3/uL (1.5-5.0); LYMPH % 8.7 % (24.0-44.0); MEAN CORPUSCULAR HEMOGLOBIN 29.7 pg (27.0-33.0); MEAN CORPUSCULAR VOLUME 87.3 fl (80.0-96.0); MONO # 1.1 10^3/uL (0.0-0.8); MONO % 7.6 % (2.0-8.0); NEUTROPHILS # 11.6 10^3/uL (1.5-8.5); NEUTROPHILS % 77.3 % (36.0-66.0); PLATELET COUNT, AUTOMATED 311 10^3/uL (150-450); RED BLOOD COUNT 4.82 10^6/uL (4.00-5.40)
[2022-07-16 17:51] LABS: ALKALINE PHOSPHATASE 97 U/L (46-116); ALT/SGPT 83 U/L (7.0-40); AST/SGOT 58 U/L (<34); BILIRUBIN,TOTAL 0.7 MG/DL (0.3-1.2); BLOOD UREA NITROGEN 26 MG/DL (9-23); CALCIUM LEVEL 9.4 MG/DL (8.3-10.6); CARBON DIOXIDE LEVEL 31 MMOL/L (20-31); CHLORIDE LEVEL 97 MMOL/L (98-107); CREATININE FOR GFR 0.76 MG/DL (0.55-1.30); GLOMERULAR FILTRATION RATE > 60.0 (>39); GLUCOSE, FASTING 112 MG/DL (74-106); POTASSIUM SERUM 3.2 MMOL/L (3.5-5.1); SODIUM LEVEL 138 MMOL/L (136-145); TOTAL PROTEIN 6.2 G/DL (5.7-8.2)
== END ==
LOC: M PLAIMG 16:47
PROVIDERS: ATTEND Physician Assistant
DX: R91.8 Other nonspecific abnormal finding of lung field (principal); J98.11 Atelectasis; M41.26 Other idiopathic scoliosis, lumbar region; R06.02 Shortness of breath; J45.30 Mild persistent asthma, uncomplicated

== ENCOUNTER → 2022-07-20 | Outpatient (CLI) | payer MEDICARE, OTHER ==
[~2022-07-20] MED LIST: ISOVUE-370 76% 100ML VIAL As Ordered ONE
== END ==
LOC: M RAD 15:39
PROVIDERS: ATTEND Physician Assistant
DX: J18.9 Pneumonia, unspecified organism (principal); R06.02 Shortness of breath; R79.89 Other specified abnormal findings of blood chemistry

== ENCOUNTER → 2022-07-20 | Outpatient (CLI) | payer MEDICARE, OTHER ==
[2022-07-20 13:53] LABS: BASO # 0.1 10^3/uL (0.0-0.2); BASO % 0.5 % (0.0-1.0); HEMATOCRIT 42.3 % (36.0-47.0); HEMOGLOBIN 14.3 g/dl (12.0-15.5); LYMPH # 1.5 10^3/uL (1.5-5.0); LYMPH % 12.7 % (24.0-44.0); MEAN CORPUSCULAR HEMOGLOBIN 31.4 pg (27.0-33.0); MEAN CORPUSCULAR HGB CONC 33.8 g/dl (32.0-36.5); MEAN CORPUSCULAR VOLUME 92.8 fl (80.0-96.0); MONO # 0.8 10^3/uL (0.0-0.8); MONO % 6.6 % (2.0-8.0); NEUTROPHILS # 8.9 10^3/uL (1.5-8.5); NEUTROPHILS % 75.9 % (36.0-66.0); PLATELET COUNT, AUTOMATED 387 10^3/uL (150-450); RED BLOOD COUNT 4.56 10^6/uL (4.00-5.40); WHITE BLOOD COUNT 11.7 10^3/uL (4.0-10.0)
[2022-07-20 14:17] LABS: ALBUMIN 3.1 G/DL (3.2-5.2); ALKALINE PHOSPHATASE 82 U/L (46-116); ALT/SGPT 54 U/L (7.0-40); AST/SGOT 19 U/L (<34); BILIRUBIN,TOTAL 0.6 MG/DL (0.3-1.2); BLOOD UREA NITROGEN 25 MG/DL (9-23); CALCIUM LEVEL 9.3 MG/DL (8.3-10.6); CARBON DIOXIDE LEVEL 29 MMOL/L (20-31); CHLORIDE LEVEL 101 MMOL/L (98-107); CREATININE FOR GFR 0.87 MG/DL (0.55-1.30); GLOMERULAR FILTRATION RATE > 60.0 (>39); GLUCOSE, FASTING 75 MG/DL (74-106); POTASSIUM SERUM 4.4 MMOL/L (3.5-5.1); SODIUM LEVEL 136 MMOL/L (136-145)
== END ==
LOC: M PLALAB 11:54
PROVIDERS: ATTEND Physician Assistant
DX: J18.9 Pneumonia, unspecified organism (principal); R06.02 Shortness of breath; E87.6 Hypokalemia

== ENCOUNTER → 2022-08-26 | Outpatient (CLI) | payer MEDICARE, OTHER | LOC: M WUC 10:01 | PROVIDERS: ATTEND Physician Assistant | DX: J18.9 Pneumonia, unspecified organism (principal) ==

== ENCOUNTER → 2022-09-15 | Outpatient (REF) | payer MEDICARE, OTHER | LOC: M SFHCPLAZ 08:32 | PROVIDERS: ATTEND Nurse Practitioner Adult Health | DX: Z53.9 Procedure and treatment not carried out, unspecified reason (principal); I87.9 Disorder of vein, unspecified ==

== ENCOUNTER → 2022-09-17 | Outpatient (CLI) | payer MEDICARE, OTHER ==
[2022-09-17 16:47] LABS: BLOOD UREA NITROGEN 16 MG/DL (9-23); CALCIUM LEVEL 8.8 MG/DL (8.3-10.6); CARBON DIOXIDE LEVEL 24 MMOL/L (20-31); CHLORIDE LEVEL 109 MMOL/L (98-107); CREATININE FOR GFR 0.71 MG/DL (0.55-1.30); GLOMERULAR FILTRATION RATE > 60.0 (>39); GLUCOSE, FASTING 107 MG/DL (74-106); POTASSIUM SERUM 3.6 MMOL/L (3.5-5.1); SODIUM LEVEL 137 MMOL/L (136-145)
== END ==
LOC: M WUC 11:21
PROVIDERS: ATTEND Nurse Practitioner Adult Health
DX: I87.9 Disorder of vein, unspecified (principal)

== ENCOUNTER → 2022-09-30 | Outpatient (CLI) | payer MEDICARE, OTHER | LOC: M WHC 10:53 | PROVIDERS: ATTEND Internal Medicine Hematology & Oncology | DX: C50.412 Malignant neoplasm of upper-outer quadrant of left female breast (principal); M81.0 Age-related osteoporosis without current pathological fracture; M85.851 Other specified disorders of bone density and structure, right thigh ==

== ENCOUNTER → 2022-10-26 | Outpatient (CLI) | payer MEDICARE, OTHER | LOC: M PAIN 13:00 | PROVIDERS: ATTEND Nurse Practitioner Family | DX: M54.2 Cervicalgia (principal); M79.10 Myalgia, unspecified site; G89.29 Other chronic pain; I83.90 Asymptomatic varicose veins of unspecified lower extremity; M81.0 Age-related osteoporosis without current pathological fracture; K21.9 Gastro-esophageal reflux disease without esophagitis; G47.00 Insomnia, unspecified; E55.9 Vitamin D deficiency, unspecified; G62.9 Polyneuropathy, unspecified; Z79.899 Other long term (current) drug therapy; Z88.6 Allergy status to analgesic agent; Z88.2 Allergy status to sulfonamides; Z88.1 Allergy status to other antibiotic agents; Z88.0 Allergy status to penicillin; Z88.8 Allergy status to other drugs, medicaments and biological substances ==

== ENCOUNTER → 2022-11-10 | Outpatient (CLI) | payer OTHER, MEDICARE | LOC: M RAD 09:51 | PROVIDERS: ATTEND Nurse Practitioner Adult Health | DX: M79.89 Other specified soft tissue disorders (principal) ==

== ENCOUNTER → 2022-12-31 | Outpatient (CLI) | payer MEDICARE, OTHER ==
[2022-12-31 16:42] LABS: ALBUMIN 3.8 G/DL (3.2-5.2); ALKALINE PHOSPHATASE 119 U/L (46-116); ALT/SGPT 26 U/L (7.0-40); AST/SGOT 14 U/L (<34); BILIRUBIN,TOTAL 0.5 MG/DL (0.3-1.2); BLOOD UREA NITROGEN 21 MG/DL (9-23); CALCIUM LEVEL 9.7 MG/DL (8.3-10.6); CARBON DIOXIDE LEVEL 30 MMOL/L (20-31); CHLORIDE LEVEL 105 MMOL/L (98-107); CREATININE FOR GFR 0.79 MG/DL (0.55-1.30); GLOMERULAR FILTRATION RATE > 60.0 (>39); GLUCOSE, FASTING 67 MG/DL (74-106); POTASSIUM SERUM 3.5 MMOL/L (3.5-5.1); SODIUM LEVEL 141 MMOL/L (136-145); TOTAL PROTEIN 6.4 G/DL (5.7-8.2)
== END ==
LOC: M PLALAB 12:28
PROVIDERS: ATTEND Nurse Practitioner Adult Health
DX: I87.9 Disorder of vein, unspecified (principal)

== ENCOUNTER → 2023-05-17 | Outpatient (CLI) | payer MEDICARE, OTHER | LOC: M RAD 12:03 | PROVIDERS: ATTEND Physician Assistant | DX: I87.303 Chronic venous hypertension (idiopathic) without complications of bilateral lower extremity (principal) ==

== ENCOUNTER → 2023-07-01 | Outpatient (CLI) | payer MEDICARE, OTHER | LOC: M PLAIMG 12:29 | PROVIDERS: ATTEND Nurse Practitioner Adult Health | DX: R91.8 Other nonspecific abnormal finding of lung field (principal); J18.9 Pneumonia, unspecified organism ==

== ENCOUNTER → 2023-07-27 | Outpatient (CLI) | payer MEDICARE, OTHER | LOC: M PLAIMG 15:46 | PROVIDERS: ATTEND Nurse Practitioner Adult Health | DX: J18.9 Pneumonia, unspecified organism (principal) ==

== ENCOUNTER → 2024-01-21 | Outpatient (CLI) | payer MEDICARE, OTHER ==
[2024-01-21 12:19] LABS: HEMOGLOBIN A1c 5.3 % (4.0-6.0)
[2024-01-21 12:28] LABS: FREE T4 1.26 NG/DL (0.89-1.76)
[2024-01-21 12:29] LABS: ALBUMIN 3.6 G/DL (3.2-5.2); ALKALINE PHOSPHATASE 83 U/L (46-116); ALT/SGPT 23 U/L (7.0-40); AST/SGOT 16 U/L (<34); BILIRUBIN,TOTAL 0.7 MG/DL (0.3-1.2); BLOOD UREA NITROGEN 17 MG/DL (9-23); CALCIUM LEVEL 9.9 MG/DL (8.3-10.6); CARBON DIOXIDE LEVEL 27 MMOL/L (20-31); CHLORIDE LEVEL 108 MMOL/L (98-107); CHOLESTEROL LEVEL 132 MG/DL (<200); CHOLESTEROL RISK RATIO 2.61 (<5); CREATININE FOR GFR 0.74 MG/DL (0.55-1.30); GLOMERULAR FILTRATION RATE > 60.0 (>39); GLUCOSE, FASTING 91 MG/DL (74-106); HDL CHOLESTEROL 50.5 MG/DL (>40); LDL CHOLESTEROL 71.7 MG/DL (<100); NON-HDL-C 81.5 MG/DL; POTASSIUM SERUM 4.2 MMOL/L (3.5-5.1); SODIUM LEVEL 141 MMOL/L (136-145); THYROID STIMULATING HORMONE 2.418 uIU/ML (0.55-4.78); TOTAL PROTEIN 6.4 G/DL (5.7-8.2); TRIGLYCERIDES LEVEL 49 MG/DL (<150)
== END ==
LOC: M WUC 09:40
PROVIDERS: ATTEND Nurse Practitioner Adult Health
DX: Z00.00 Encounter for general adult medical examination without abnormal findings (principal); I87.9 Disorder of vein, unspecified; E78.2 Mixed hyperlipidemia; E55.9 Vitamin D deficiency, unspecified; Z79.899 Other long term (current) drug therapy

== ENCOUNTER → 2024-08-11 | Outpatient (CLI) | payer MEDICARE, OTHER ==
[2024-08-11 17:43] LABS: ALBUMIN 4.1 G/DL (3.2-5.2); BILIRUBIN,TOTAL 0.6 MG/DL (0.3-1.2); CALCIUM LEVEL 9.7 MG/DL (8.3-10.6); CREATININE FOR GFR 0.71 MG/DL (0.55-1.30); GLOMERULAR FILTRATION RATE 87.5 (>39); POTASSIUM SERUM 3.9 MMOL/L (3.5-5.1)
== END ==
LOC: M WUC 14:39
PROVIDERS: ATTEND Nurse Practitioner Adult Health
DX: I87.9 Disorder of vein, unspecified (principal); E55.9 Vitamin D deficiency, unspecified

== ENCOUNTER → 2024-11-09 | Outpatient (CLI) | payer MEDICARE, OTHER ==
[2024-11-09 13:07] LABS: PLATELET COUNT, AUTOMATED 259 10^3/uL (150-450)
[2024-11-09 14:01] LABS: ALT/SGPT 24.0 U/L (7.0-40); AST/SGOT 19.0 U/L (<34); CALCIUM LEVEL 9.3 MG/DL (8.3-10.6); CARBON DIOXIDE LEVEL 25.0 MMOL/L (20-31); CHLORIDE LEVEL 104.0 MMOL/L (98-107); CHOLESTEROL LEVEL 129.0 MG/DL (<200); CHOLESTEROL RISK RATIO 2.48 (<5); CREATININE FOR GFR 0.79 MG/DL (0.55-1.30); FREE T4 1.15 NG/DL (0.89-1.76); GLOMERULAR FILTRATION RATE 76.5 (>39); LDL CHOLESTEROL 62.4 MG/DL (<100); NON-HDL-C 77.0 MG/DL; POTASSIUM SERUM 4.0 MMOL/L (3.5-5.1); SODIUM LEVEL 143.0 MMOL/L (136-145); TRIGLYCERIDES LEVEL 73.0 MG/DL (<150)
[2024-11-09 14:11] LABS: ESTIMATED AVERAGE GLUCOSE 114.0 MG/DL (60-110)
== END ==
LOC: M WUC 09:25
PROVIDERS: ATTEND Nurse Practitioner Adult Health
DX: I87.9 Disorder of vein, unspecified (principal); R73.01 Impaired fasting glucose; E55.9 Vitamin D deficiency, unspecified; E78.00 Pure hypercholesterolemia, unspecified

== ENCOUNTER → 2024-11-13 | Outpatient (CLI) | payer MEDICARE, OTHER | LOC: M RAD 13:17 | PROVIDERS: ATTEND Physician Assistant | DX: I87.2 Venous insufficiency (chronic) (peripheral) (principal); R60.0 Localized edema ==

== ENCOUNTER → 2025-02-07 | Outpatient (REF) | payer MEDICARE, OTHER ==
[2025-02-09 15:57] LABS: HPV APTIMA Not Detected (Not Detected)
== END ==
LOC: M SFHCWAGY 15:43
PROVIDERS: ATTEND Physician Assistant
DX: Z12.4 Encounter for screening for malignant neoplasm of cervix (principal)